=== PATIENT | male | born 2000 ===

== ENCOUNTER 2022-09-07 00:35 | Emergency (ER) ==
[2022-09-07 03:15] LABS: #Eosinphils 0.4 10x3/uL (0.0-0.5); #Monocytes 1.1 10x3/uL (0.0-1.1); %Basophils 0.2 % (0.0-2.0); %Eosinophils 3.1 % (0.0-6.0); %Lymphocytes 14.2 % (18.0-47.0); %Monocytes 8.1 % (0.0-10.0); %Neutrophils 74.2 % (40.0-75.0); Mean Corpuscular HGB CONC 34.9 g/dL (32.0-36.0); Mean Corpuscular Hemoglobin 29.9 pg (27.0-33.0); Mean Corpuscular Volume 85.8 fl (81.2-95.1); Mean Platelet Volume 8.4 fl (7.4-10.4); Platelet Count 341 10x3/uL (150-450); RBC Distribution Width 11.2 % (11.5-14.5); Red Blood Cell (RBC) Count 5.01 10x6/uL (4.32-5.72); White Blood Cell (WBC) Count 13.5 10x3/uL (3.5-10.5)
[2022-09-07] MEDS ORDERED: Oxymetazoline HCl 0.05% ( 15 ML ) ONE (03:24)
[2022-09-07 03:28] LABS: ALT (SGPT) 28 U/L (8-55); AST (SGOT) 28 U/L (10-45); Albumin 4.6 g/dL (3.5-5.0); Alkaline Phosphatase 78 U/L (50-130); Anion Gap 19 mmol/L (10-20); BUN (Urea Nitrogen) 15 mg/dL (8.4-21.0); Bilirubin, Total 0.5 mg/dL (0.2-1.2); Calc. Creatinine Clearance 0 mL/min (70-130); Calcium 10.1 mg/dL (7.8-10.44); Carbon Dioxide 24 mmol/L (22-29); Chloride 102 mmol/L (98-107); Estimated GFR 99; Globulin 3.1 g/dL (2.4-3.5); Glucose 98 mg/dL (70-105); Potassium 3.8 mmol/L (3.5-5.1); Protein, Total 7.7 g/dL (6.0-8.3); Sodium 141 mmol/L (136-145)
[2022-09-07] MEDS ORDERED: PROPOFOL 20 ML ONE (03:28)
[2022-09-07] MEDS ORDERED: Fentanyl 100 MCG/2 ML VIAL ONE (03:28)
[2022-09-07] MEDS ORDERED: Dexamethasone 20 MG/5 ML VIAL ONE ×2 (03:29→04:09)
[2022-09-07] MEDS ORDERED: Lidocaine 4% PF 5 ML AMP ONE (03:29)
[2022-09-07] MEDS ORDERED: Ondansetron PF 4 MG/2 ML Vial ONE (03:29)
[2022-09-07] MEDS ORDERED: Ketorolac Tromethamine 30 MG/ML VIAL ONE (03:32)
[2022-09-07] MEDS ORDERED: SUGAMMADEX SODIUM 200 MG/2 ML VIAL ONE (04:04)
[2022-09-07] MEDS ORDERED: PROPOFOL 40 ML ONE (04:33)
[2022-09-07] MEDS ORDERED: Meperidine HCl/PF 25 MG/ML VIAL ONE (04:39)
[2022-09-07] MEDS ORDERED: Non-Formulary Medication 1 EACH PO PRN (05:39)
[2022-09-07] MEDS ORDERED: HYDROmorphone 2 MG/ML VIAL SLOW IVP PRN (05:45)
[2022-09-07] MEDS ORDERED: Ondansetron HCl/PF 4 MG/2 ML Vial IVP PRN (05:45)
[2022-09-07] MEDS ORDERED: Meperidine HCl/PF 25 MG/ML VIAL SLOW IVP PRN (05:45)
[2022-09-07] MEDS ORDERED: Promethazine HCl 25 MG/ML VIAL IM/IV PRN (05:45)
== END 2022-09-07 03:43 | disposition admitted as inpatient to this hospital (09) ==
LOC: CSHERS 00:35
DX: J95.830 Postprocedural hemorrhage of a respiratory system organ or structure following a respiratory system procedure (principal)
CPT/HCPCS: 80053; 85025; 86850; 86900; 86901; 99284; J1100; J1885; J2175; J2405; J2704; J3010